=== PATIENT | female | born 1935 | race Caucasian/White ===

== ENCOUNTER → 2017-04-28 | Outpatient (CLI) | payer OTHER ==
[~2017-04-28] MED LIST: AMOX500T PO; ASPI81CH6 CHEW; ATOR40TA PO; ATOR40TA16 PO; CALC1TAB87 PO; CALC625 PO; CALTTAB5 PO; FIBE625T10 PO; HYDR-3288 PO; LEVO112T2 PO; LORTA5 PO; NAPR220T95 PO; NAPR500 PO; TAB-TAB PO; VITA1000 PO; VITA10004 PO; VITA400C28 PO
== END ==
LOC: CPRE 09:45
PROVIDERS: ATTEND Orthopaedic Surgery Sports Medicine
DX: M17.12 Unilateral primary osteoarthritis, left knee (principal)

== ENCOUNTER 2017-05-08 06:50 | Inpatient (IN) | payer OTHER, MEDICARE ==
[~2017-05-08] VITALS: Ht 172.7 cm; Wt 72.0 kg
[~2017-05-08 06:50] MED LIST changes: -AMOX500T PO; -ASPI81CH6 CHEW; -ATOR40TA PO; -CALC625 PO; -CALTTAB5 PO; -HYDR-3288 PO; -LORTA5 PO; -NAPR220T95 PO; -TAB-TAB PO; -VITA400C28 PO
[2017-05-08] MEDS ORDERED: ASPI81CH6 CHEW (07:09)
[2017-05-08] MEDS ORDERED: HYDR-3288 PO (07:09)
[2017-05-08] MEDS ORDERED: diphenhydrAMINE HCL 50 MG/ML VIAL IV PUSH PRN (07:15)
[2017-05-08] MEDS ORDERED: ONDANSETRON HCL 4 MG/2 ML VIAL IVP PRN (07:15)
[2017-05-08] MEDS ORDERED: MORPHINE SULFATE 4 MG/ML INJ IV PUSH PRN (07:15)
[2017-05-08] MEDS ORDERED: BISACODYL 10 MG SUPP RECTAL PRN (07:15)
[2017-05-08] MEDS ORDERED: VANCOMYCIN 1 GM/200 ML INJ 200 ML IV ONE (07:41)
[2017-05-08] MEDS ORDERED: DEXAMETHASONE SOD PHOS 20 MG/5 ML VIAL ONE (07:43)
[2017-05-08] MEDS ORDERED: VANCOMYCIN 1000 MG/NS 250 ML (for <70 kg) IV SCH ×2 (07:45)
[2017-05-08] MEDS ORDERED: CHLORHEXIDINE GLUCONATE 4% SOLN 120 ML BTL TOPICAL SCH (07:45)
[2017-05-08] MEDS ORDERED: ceFAZolin 2 GM PREMIX 50 ML IV SCH (07:45)
[2017-05-08] MEDS ORDERED: POVIDONE IODINE 5% (ANTISEPSIS KIT) 4 APPLICATIONS EACH NARE PRN (07:45)
[2017-05-08] MEDS ORDERED: LACTATED RINGER'S 1000 ML IV PRN (07:45)
[2017-05-08] MEDS ORDERED: POVIDONE IODINE 7.5% SCRUB 118 ML BOTTLE TOPICAL SCH (07:45)
[2017-05-08] MEDS ORDERED: SODIUM CHLORID 0.9% 500 ML IV PRN (07:45)
[2017-05-08] MEDS ORDERED: CHLORHEXIDINE GLUCONATE 2 % 1 PACK (2 CLOTHS) TOPICAL PRN (07:45)
[2017-05-08] MEDS ORDERED: INSULIN HUMAN REGULAR 1,000 UNITS/10 ML VIAL SQ PRN (07:45)
[2017-05-08] MEDS ORDERED: METOPROLOL TARTRATE 25 MG TAB PO PRN (07:45)
[2017-05-08] MEDS ORDERED: TRANEXAMIC PERI-ARTICULAR 3,000 MG/NS 100 ML P-ARTICULR SCH ×2 (08:00)
[2017-05-08] MEDS ORDERED: SODIUM CHLORIDE 0.9% IV SCH (08:00)
[2017-05-08] MEDS ORDERED: TRANEXAMIC ACID IV SCH (08:00)
[2017-05-08] MEDS ORDERED: ROPIVACAINE PERI-ARTICULAR INJECTION. P-ARTICULR SCH ×5 (08:00)
[2017-05-08] MEDS ORDERED: FAT EMULSION 20% INJ 0 ML ONE (08:10)
[2017-05-08 08:27] VITALS: PULSE 64
[2017-05-08] MEDS ORDERED: FAMOTIDINE 20 MG/2 ML VIAL ONE ×2 (08:58→09:06)
[2017-05-08] MEDS ORDERED: MIDAZOLAM HCL 2 MG/2 ML VIAL ONE (08:58)
[2017-05-08] MEDS: LEVOTHYROXINE SODIUM 112 MCG TAB PO SCH (09:00)
[2017-05-08] MEDS: CALCIUM POLYCARBOPHIL 625 MG TAB PO SCH (09:00)
[2017-05-08] MEDS: CHOLECALCIFEROL (VIT D3) 1000 UNIT TAB PO SCH (09:00)
[2017-05-08] MEDS ORDERED: ACETAMINOPHEN 1000 MG/100 ML 100 ML IV ONE (09:06)
[2017-05-08] MEDS ORDERED: GENTAMICIN SULFATE 80 MG/2 ML VIAL ONE (09:14)
[2017-05-08] MEDS ORDERED: MIDAZOLAM HCL 2 MG/2 ML VIAL IV ONE (10:15)
[2017-05-08] MEDS ORDERED: FAMOTIDINE 20 MG/2 ML VIAL IV ONE (10:15)
[2017-05-08] MEDS ORDERED: fentaNYL CITRATE 250 MCG/5 ML AMP ONE (10:32)
[2017-05-08] MEDS ORDERED: Post-op Orders (for Pharmacy) XX ONE (11:39)
--- NOTE | 2017-05-08 11:50 | MP ---
cc: Campbell Cotter MD DATE OF OPERATION: PREOPERATIVE DIAGNOSIS: Left knee osteoarthritis. POSTOPERATIVE DIAGNOSIS: Left knee osteoarthritis. PROCEDURE: Left total knee arthroplasty. SURGEON: Dr. Campbell Cotter. NUCLEAR PHYSICS PROFESSOR: JERMAINE Shearer. ANESTHESIA: General with femoral nerve adductor canal block. ESTIMATED BLOOD LOSS: 200 mL TOURNIQUET TIME: 24 minutes, 250 mmHg. COMPLICATIONS: None. IMPLANTS USED: DePuy Attune size 6 posterior stabilized femoral component, size 5 rotating platform tibial baseplate, size 5 mm polyethylene tibial insert, size 35 patella. JUSTIFICATION: This patient is an 81-year-old female with history of severe end-stage osteoarthritis involving the left knee. She has severe disabling pain with standing, walking, ambulation, weightbearing activities and severe pain at rest. She has failed greater than 3 months of nonoperative conservative treatment including medication therapy, injections, ambulatory assistive aids, home exercise program, activity modification. The patient is not overweight. X-rays of the left knee reveal severe end-stage osteoarthritis with joint space narrowing, subchondral sclerosis, subchondral cyst, osteophyte formation and subluxation with deformity. The patient was counseled on risks, benefits and alternatives to a total knee arthroplasty. The risks were discussed, which include but not limited to anesthesia, bleeding, infection, damage to nerves and blood vessels, pain, stiffness, failure of components, blood clots, pulmonary embolism and even . Patient's pain is severe. She favored the benefits over risks and she wished to proceed with surgery. PROCEDURE IN DETAIL: Written consent was obtained. The patient was identified by name, taken to the operating room, placed supine on operating table. General anesthesia was administered as well as 2 g of IV Ancef, 1 g of IV vancomycin. A well-padded tourniquet was placed on the left thigh. The left lower extremity was prepped and draped using isopropyl alcohol, Hibiclens solution and ChloraPrep solution. After a timeout was performed, an Esmarch bandage was used to exsanguinate the left lower extremity and tourniquet inflated to 250 mmHg. A longitudinal incision was made over the anterior aspect of left knee. A medial parapatellar arthrotomy was performed. The patella was everted. The patellar resection guide was used to resect 7 mm of patella. The size 35 mm guide was placed. Three drill holes were placed and 35 mm trial fit well. Attention turned to the femur where intramedullary guide blake was placed, and distal femoral guide was set to remove 10 mm of distal femur, 5 degrees off the anatomic valgus axis alignment. An oscillating saw was used to perform the distal femoral cut. Attention was turned to the tibia. An extramedullary tibial guide was set to remove 6 mm off the lowest portion of medial tibial plateau. The tibial guide was pinned in place. The tibial cut was performed. A 5 mm spacer block showed full extension. Attention was turned back to the femur. AP sizer block measured size 6. The anterior reference 3-degree external rotation guide was used to pin a size [address] Anterior, posterior, chamfer cuts were performed. A size 6 PCL block was pinned in place and the PCL was box cut with an oscillating saw. The medial and lateral meniscus remnants were removed as well as bone and soft tissue debris from posterior portion of the knee. A size 5 tibia baseplate was pinned in place. The tibia was drilled and punched. Trial components were . Final components were cemented in place. With the current components, the leg could achieve full extension of 0 degrees, flexion to 140, no evidence of tibial liftoff. Varus/valgus balance appeared appropriate and symmetric and the patella was noted to track centrally. The knee was thoroughly irrigated with sterile saline pulse lavage antibiotic-impregnated solution. The arthrotomy incision was closed with #1 Vicryl suture, subcutaneous layer with 2-0 Vicryl suture. Skin was closed with Dermabond. Sterile dressing was applied. The patient tolerated procedure well with no intraoperative complications noted. Austyn Vegas, physician bricklayer's assistant certified, was present throughout the entire procedure to include patient positioning and the procedure itself. The medical necessity of a physician bricklayer's assistant was indicated in this case due to the complexity of the procedure. He assisted with manipulation of the leg and also retraction of muscle, tendon, bone, neurovascular structure. He assisted in preparation of bone and also implantation of the prosthetic replacement. MD MARIA ESTHER Wilhelm/MYRNA , 11:14 AM , 11:48 AM
[2017-05-08] MEDS ORDERED: LACTATED RINGER'S 1000 ML INJ 1,000 ML IV ONE (12:00)
[2017-05-08] MEDS ORDERED: ONDANSETRON HCL 4 MG/2 ML VIAL IV PUSH ONE (12:00)
[2017-05-08] MEDS ORDERED: NEOSTIGMINE 5 MG/5 ML SYRINGE IV PUSH ONE (12:00)
[2017-05-08] MEDS ORDERED: LIDOCAINE HCL 1% PF 5 ML SYRINGE OTHER ONE (12:00)
[2017-05-08] MEDS ORDERED: PROPOFOL 200 MG/20 ML AMP IV ONE (12:00)
[2017-05-08] MEDS ORDERED: GLYCOPYRROLATE 1 MG/5 ML SYRINGE IV PUSH ONE (12:00)
[2017-05-08] MEDS ORDERED: ePHEDrine/NS 25 MG/5 ML SYRINGE IV ONE (12:00)
[2017-05-08] MEDS ORDERED: ROCURONIUM INJ 50 MG/5 ML SYRINGE IV PUSH ONE (12:00)
--- NOTE | 2017-05-08 12:36 | RADRPT ---
EXAM DATE/TIME: 05/08/2017 11:50 [facility] COMPARISON: No previous studies available for comparison. INDICATIONS : Post op left knee MEDICAL HISTORY : None. SURGICAL HISTORY : left knee replaced ENCOUNTER: Initial ACUITY: 1 day PAIN SCORE: 0/10 LOCATION: Left knee FINDINGS: Status post left knee prosthesis. There is good position and alignment of the knee prosthesis and bon y structures. There are postsurgical changes. CONCLUSION: Good position and alignment on this postoperative study. Antolin Darden MD on May 08, 2017 at 12:34 Board Certified Radiologist. This report was verified electronically.
--- NOTE | 2017-05-08 13:16 | HHI.DCPOC ---
Discharge Care Plan Diagnosis: (1) Primary localized osteoarthrosis, lower leg Your Health Problems Are: Difficulty with ADL Goals to Promote Your Health * To prevent worsening of your condition and complications * To maintain your health at the optimal level Directions to Meet Your Goals Take your medications as prescribed Follow your dietary instruction Follow activity as directed Keep your appointments as scheduled Take your immunizations and boosters as scheduled If your symptoms worsen call your PCP, if no PCP go to Urgent Care Center or Emergency Room Smoking is Dangerous to Your Health. Avoid second hand smoke Call the 24-hour hour crisis hotline for domestic abuse at Campbell Vegas May 08, 2017 13:16
[2017-05-08] MEDS ORDERED: cloNIDine HCL 0.1 MG TAB PO PRN (15:30)
--- NOTE | 2017-05-08 15:36 | PD.CONS ---
HPI Service [facility] Consult Requested By Dr. Cotter Reason for Consult Medical management Primary Care Physician Yudith Mcgarry Do, MD Diagnoses: History of Present Illness The patient is an 81-year-old female with past medical history of osteoarthritis who is presenting to the hospital for elective left knee replacement. The patient says she had her right knee done in 2010. She decided to pursue her left knee replacement because she has been walking crooked. She says she has been compensating for her knee and has been having a lot of issues with ambulation. She says she has been doing physical therapy on her own at home. She has been taking Aleve for pain control. She does not ambulate with a cane or a walker. She is able to go up and down stairs. The patient tolerated the procedure well and is currently reporting no pain. She says that she would likely benefit from rehabilitation following hospitalization as she wakes up many times at night to go to the bathroom and does not want to fall. She worked with physical therapy following surgery. Review of Systems Except as stated in HPI: all other systems reviewed are Neg Past Family Social History Allergies: Coded Allergies: Sulfa (Sulfonamide Antibiotics) (Unverified Allergy, Mild, 10/04/16) Past Medical History Diverticulitis status post surgery Osteoarthritis Thyroid nodule status post thyroidectomy Hyperlipidemia Nose spurs status post surgery Cholecystectomy Hysterectomy Active Ordered Medications Current Medications Medications (Trade) Dose Ordered Sig/Alyssa Route Start Time Stop Time Status Last Admin (Fiber Con) 1,250 mg DAILY PO 05/08/17 09:00 (Vitamin D3) 1,000 units DAILY PO 05/08/17 09:00 (Synthroid) 112 mcg DAILY@0600 PO 05/08/17 09:00 Sodium Chloride 1,000 ml @ 100 mls/hr Q10H IV 05/08/17 07:06 Cefazolin Sodium 1000 mg/Sodium Chloride 100 ml @ 200 mls/hr Q6H IV 05/08/17 16:00 05/09/17 04:29 (Lovenox Inj) 30 mg Q24H SQ 05/08/17 23:30 (Morphine Inj) 3 mg Q3H PRN IV PUSH 05/08/17 07:15 ([place] 7.5-325 Mg) 1 tab Q4H PRN PO 05/08/17 07:15 ([place] 7.5-325 Mg) 2 tab Q4H PRN PO 05/08/17 07:15 (Theragran M Tab) 1 tab BID PO 05/09/17 21:00 07/08/17 20:59 (Zofran Inj) 4 mg Q6H PRN IVP 05/08/17 07:15 (Colace) 100 mg BID PO 05/09/17 21:00 (Ambien) 5 mg HS PRN PO 05/08/17 21:00 (Dulcolax Supp) 10 mg DAILY PRN RECTAL 05/08/17 07:15 (Benadryl Inj) 25 mg Q6H PRN IV PUSH 05/08/17 07:15 Lactated Ringer's 1,000 ml @ 30 mls/hr Q24H PRN IV 05/08/17 07:45 05/11/17 07:44 Sodium Chloride 500 ml @ 30 mls/hr [id number] PRN IV 05/08/17 07:45 05/11/17 07:44 (Lopressor) 25 mg BALANCE RECESSER PRN PO 05/08/17 07:45 05/11/17 07:44 (Betadine 5% Antisepsis Kit) 1 applic BALANCE RECESSER PRN EACH NARE 05/08/17 07:45 05/11/17 07:44 (Chlorhexidine 2% Cloth) 3 pack BALANCE RECESSER PRN TOPICAL 05/08/17 07:45 05/11/17 07:44 (NovoLIN R INJ) See Protocol Table ... BALANCE RECESSER PRN SQ 05/08/17 07:45 05/11/17 07:44 (Betadine 7.5% Scrub) 1 applic ONCE TOPICAL 05/08/17 07:45 05/11/17 07:44 (Hibiclens 4% Top Soln) 1 applic ONCE TOPICAL 05/08/17 07:45 05/11/17 07:44 Vancomycin HCl 1000 mg/Sodium Chloride 250 ml @ 250 mls/hr BALANCE RECESSER IV 05/08/17 07:45 05/11/17 07:44 05/08/17 09:42 Tranexamic Acid 1069.5 mg/Sodium Chloride 110.695 ml @ 200 mls/ hr ONCE IV 05/08/17 08:00 05/09/17 14:00 05/08/17 09:46 Ropivacaine 24.63 ml/Ketorolac Tromethamine 30 mg/Epinephrine HCl 0.5 mg/ Clonidine 80 mcg/ Sodium Chloride 100 ml @ 200 mls/hr ONCE P-ARTICULR 05/08/17 08:00 05/09/17 14:00 05/08/17 10:17 Tranexamic Acid 3000 mg/Sodium Chloride 130 ml @ 260 mls/hr ONCE P-ARTICULR 05/08/17 08:00 05/09/17 14:00 05/08/17 10:17 Family History Pituitary tumor Social History The patient does not smoke. She has social alcohol use. Physical Exam Vital Signs Vital Signs Date Time Temp Pulse Resp B/P (MAP) Pulse Ox O2 Delivery O2 Flow Rate FiO2 05/08/17 11:45 80 12 160/72 (101) 100 Nasal Cannula 4 05/08/17 11:40 96.7 96 12 168/74 (105) 100 Nasal Cannula 4 05/08/17 08:28 100 Nasal Cannula 2 05/08/17 08:27 64 05/08/17 07:15 98.0 75 16 131/78 (95) 94 Physical Exam GENERAL: This is a well-nourished, well-developed patient, in no apparent distress. SKIN: No rashes, ecchymoses or lesions. Cool and dry. Old incision on right knee. HEAD: Atraumatic. Normocephalic. No temporal or scalp tenderness. EYES: Pupils equal round and reactive. Extraocular motions intact. No scleral icterus. No injection or drainage. ENT: Nose without bleeding, purulent drainage or septal hematoma. Throat without erythema, tonsillar hypertrophy or exudate. Uvula midline. Airway patent. NECK: Trachea midline. No JVD or lymphadenopathy. Supple, nontender, no meningeal signs. CARDIOVASCULAR: Regular rate and rhythm without murmurs, gallops, or rubs. RESPIRATORY: Clear to auscultation. Breath sounds equal bilaterally. No wheezes , rales, or rhonchi. GASTROINTESTINAL: Abdomen soft, non-tender, nondistended. No hepato-splenomegaly , or palpable masses. No guarding. MUSCULOSKELETAL: Left knee currently bandaged. No edema in the right lower extremity. NEUROLOGICAL: Awake and alert. Cranial nerves II through XII intact. Motor and sensory grossly within normal limits. Five out of 5 muscle strength in all muscle groups. Normal speech. PSYCH: Mood and affect appropriate. Imaging Last Impressions Knee X-Ray 05/08/17 0706 Signed Impressions: Service Date/Time: Monday, May 08, 2017 11:50 - CONCLUSION: Good position and alignment on this postoperative study. Antolin Darden MD Assessment and Plan Assessment and Plan Severe osteoarthritis The patient is status post elective left knee replacement 05/08/17. She tolerated the procedure well. She has a history of right knee replacement 2010. - Pain control with a bowel regimen. - Anticoagulation, weightbearing and wound care per orthopedic surgery. - Follow CBC and transfuse as needed. - Incentive spirometry. - Physical therapy. Hypertension Appears to be a stress reaction. - Clonidine as needed. - Pain control. Hypothyroidism The patient stated she had thyroid nodules and is status post thyroidectomy. - Continue levothyroxine. Diverticulitis Status post major surgery in the past. - Careful with bowel regimen as patient is prone to diarrhea. PPx: Per surgery Discussed Condition With Patient, physical therapy Sinan Lancaster DO May 08, 2017 15:36
[2017-05-08 19:06] VITALS: BP 151/80; PULSE 78; RESP 17; TEMP 99.1; O2SAT 99
[2017-05-08] MEDS: ACETAMINOPHEN/HYDROcodone 325 MG/7.5 MG TAB PO PRN (19:56)
[2017-05-08 20:00] VITALS: BP 125/62; PULSE 68; RESP 18; TEMP 98.5; O2SAT 96
[2017-05-08] MEDS ORDERED: ZOLPIDEM TARTRATE 5 MG TAB PO PRN (21:00)
[2017-05-08] MEDS: ENOXAPARIN SODIUM 30 MG/0.3 ML SYRINGE SQ SCH (23:39)
[2017-05-09] VITALS: BP 114/48; PULSE 72; RESP 18; TEMP 98.2; O2SAT 97
[2017-05-09 04:00] VITALS: BP 115/55; PULSE 79; RESP 18; TEMP 98.8; O2SAT 97
[2017-05-09] MEDS: LEVOTHYROXINE SODIUM 112 MCG TAB PO SCH (05:19)
[2017-05-09] MEDS: ACETAMINOPHEN/HYDROcodone 325 MG/7.5 MG TAB PO PRN ×5 (05:21→22:53)
[2017-05-09 06:02] LABS: HEMATOCRIT 31.4 % (35.0-46.0); HEMOGLOBIN 10.6 GM/DL (11.6-15.3); MEAN CELL VOLUME 92.4 FL (80.0-100.0); MEAN CORPUSCULAR HEMOGLOBIN 31.3 PG (27.0-34.0); MEAN CORPUSCULAR HGB CONC 33.8 % (32.0-36.0); MEAN PLATELET VOLUME 8.3 FL (7.0-11.0); PLATELET COUNT 132 TH/MM3 (150-450); RED CELL DISTRIBUTION WIDTH 13.4 % (11.6-17.2); WHITE BLOOD COUNT 12.6 TH/MM3 (4.0-11.0)
[2017-05-09 06:06] LABS: BICARBONATE 22.1 MEQ/L (21.0-32.0); CALCIUM 8.2 MG/DL (8.5-10.1); CREATININE 0.97 MG/DL (0.50-1.00)
[2017-05-09 08:00] VITALS: BP 115/65; PULSE 63; RESP 16; TEMP 98.2; O2SAT 93
[2017-05-09] MEDS ORDERED: POTASSIUM CHLORIDE 10 MEQ CAP PO ONE (08:30)
--- NOTE | 2017-05-09 08:31 | PD.ORT.PN ---
Subjective Post Op Day #: 1 Subjective Remarks pain under control. Objective Vitals Vital Signs Date Time Temp Pulse Resp B/P (MAP) Pulse Ox O2 Delivery O2 Flow Rate FiO2 05/09/17 04:00 98.8 79 18 115/55 (75) 97 05/09/17 00:00 98.2 72 18 114/48 (70) 97 05/08/17 20:56 16 05/08/17 20:00 98.5 68 18 125/62 (83) 96 05/08/17 19:06 99.1 78 17 151/80 (103) 99 05/08/17 17:00 98.2 67 12 126/60 (82) 98 Room Air 05/08/17 16:00 82 12 130/53 (78) 99 Room Air 05/08/17 15:00 68 12 130/61 (84) 99 Nasal Cannula 2 05/08/17 14:00 73 12 149/61 (90) 100 Nasal Cannula 2 05/08/17 13:00 61 12 136/60 (85) 98 Nasal Cannula 2 05/08/17 12:30 60 12 143/65 (91) 97 Nasal Cannula 2 05/08/17 12:15 60 12 148/65 (92) 100 Nasal Cannula 2 05/08/17 12:00 98.1 60 12 159/66 (97) 100 Nasal Cannula 2 05/08/17 11:45 80 12 160/72 (101) 100 Nasal Cannula 4 05/08/17 11:40 96.7 96 12 168/74 (105) 100 Nasal Cannula 4 I/O 05/08/17 05/08/17 05/08/17 05/09/17 05/09/17 05/09/17 07:00 15:00 23:00 07:00 15:00 23:00 Intake Total 1100 ml 250 ml 100 ml Output Total 200 ml 400 ml 0 ml Balance 900 ml -150 ml 100 ml Intake Oral 250 ml IV Total 1100 ml 100 ml Output Urine Total 400 ml 0 ml Estimated Blood Loss 200 ml # Bowel Movements 0 Result Diagram: 05/09/1744405/09/17444 Objective Remarks in bed, nad dressing c/d/i neg homans nvi Assessment & Plan Ortho Post Op Day #: 1 Problem List: Assessment and Plan s/p L TKA wbat ok to maintain dressing unless saturated lovenox, d/c on asa81 d/c planning snf when authorized by insurance rx in chart f/up dr. traore 2 weeks Campbell Vegas May 09, 2017 08:30
[2017-05-09] MEDS: CHOLECALCIFEROL (VIT D3) 1000 UNIT TAB PO SCH (08:39)
[2017-05-09] MEDS: CALCIUM POLYCARBOPHIL 625 MG TAB PO SCH (09:21)
--- NOTE | 2017-05-09 10:45 | HHI.PR ---
Subjective Remarks Follow-up left knee surgery. She is doing well already out of bed to chair. Discussed with nursing Objective Vitals Vital Signs Date Time Temp Pulse Resp B/P (MAP) Pulse Ox O2 Delivery O2 Flow Rate FiO2 05/09/17 10:26 18 05/09/17 08:00 98.2 63 16 115/65 (82) 93 05/09/17 04:00 98.8 79 18 115/55 (75) 97 05/09/17 00:00 98.2 72 18 114/48 (70) 97 05/08/17 20:56 16 05/08/17 20:00 98.5 68 18 125/62 (83) 96 05/08/17 19:06 99.1 78 17 151/80 (103) 99 05/08/17 17:00 98.2 67 12 126/60 (82) 98 Room Air 05/08/17 16:00 82 12 130/53 (78) 99 Room Air 05/08/17 15:00 68 12 130/61 (84) 99 Nasal Cannula 2 05/08/17 14:00 73 12 149/61 (90) 100 Nasal Cannula 2 05/08/17 13:00 61 12 136/60 (85) 98 Nasal Cannula 2 05/08/17 12:30 60 12 143/65 (91) 97 Nasal Cannula 2 05/08/17 12:15 60 12 148/65 (92) 100 Nasal Cannula 2 05/08/17 12:00 98.1 60 12 159/66 (97) 100 Nasal Cannula 2 05/08/17 11:45 80 12 160/72 (101) 100 Nasal Cannula 4 05/08/17 11:40 96.7 96 12 168/74 (105) 100 Nasal Cannula 4 I/O 05/08/17 05/08/17 05/08/17 05/09/17 05/09/17 05/09/17 07:00 15:00 23:00 07:00 15:00 23:00 Intake Total 1100 ml 250 ml 100 ml Output Total 200 ml 400 ml 0 ml Balance 900 ml -150 ml 100 ml Intake Oral 250 ml IV Total 1100 ml 100 ml Output Urine Total 400 ml 0 ml Estimated Blood Loss 200 ml # Bowel Movements 0 Result Diagram: 05/09/175 05/09/17444 Imaging Last Impressions Knee X-Ray 05/08/17 0706 Signed Impressions: Service Date/Time: Monday, May 08, 2017 11:50 - CONCLUSION: Good position and alignment on this postoperative study. Antolin Darden MD Objective Remarks GENERAL: This is a well-nourished, well-developed patient, in no apparent distress. SKIN: No rashes, ecchymoses or lesions. Cool and dry. CARDIOVASCULAR: Regular rate and rhythm without murmurs, gallops, or rubs. RESPIRATORY: Clear to auscultation. Breath sounds equal bilaterally. No wheezes , rales, or rhonchi. GASTROINTESTINAL: Abdomen soft, non-tender, nondistended. No guarding. MUSCULOSKELETAL: Left knee currently bandaged. No edema in the right lower extremity. NEUROLOGICAL: Awake and alert. Cranial nerves II through XII intact. Motor and sensory grossly within normal limits. Five out of 5 muscle strength in all muscle groups. Normal speech. PSYCH: Mood and affect appropriate. A/P Assessment and Plan Severe osteoarthritis The patient is status post elective left knee replacement 05/08/17. She tolerated the procedure well. She has a history of right knee replacement 2010. - Pain control with Lortab continue bowel regimen. - Anticoagulation with Lovenox, weightbearing and wound care per orthopedic surgery. - Follow CBC and transfuse as needed. - Incentive spirometry. - Physical therapy. Hypertension Appears to be a stress reaction. - Clonidine as needed. - Pain control. Hypothyroidism The patient stated she had thyroid nodules and is status post thyroidectomy. - Continue levothyroxine. Diverticulitis Status post major surgery in the past. - Careful with bowel regimen as patient is prone to diarrhea. Hyperlipidemia. Stable continue statin Hyperglycemia. Obtain A1c Anemia secondary to acute blood loss. Hemodynamically stable. Monitor Troy Rodriguez MD May 09, 2017 10:45
[2017-05-09 12:00] VITALS: BP 149/62; PULSE 73; RESP 18; TEMP 97.3; O2SAT 94
[2017-05-09] MEDS: SODIUM CHLOR 0.9% 1000 ML INJ 1,000 ML IV SCH ×2 (13:06→22:55)
[2017-05-09 16:57] LABS: HEMOGLOBIN A1C 5.1 % (4.3-6.0)
[2017-05-09 20:21] VITALS: BP 134/63; PULSE 78; RESP 17; TEMP 99; O2SAT 94
[2017-05-09] MEDS: DOCUSATE SODIUM 100 MG CAP PO SCH (20:25)
[2017-05-09] MEDS: MULTIVITAMINS/MINERALS THERAPEUTIC TAB PO SCH (20:25)
[2017-05-09] MEDS: ENOXAPARIN SODIUM 30 MG/0.3 ML SYRINGE SQ SCH (23:33)
[2017-05-10 00:58] VITALS: BP 118/58; PULSE 72; RESP 18; TEMP 99.2; O2SAT 95
[2017-05-10] MEDS: LEVOTHYROXINE SODIUM 112 MCG TAB PO SCH (04:46)
[2017-05-10] MEDS: ACETAMINOPHEN/HYDROcodone 325 MG/7.5 MG TAB PO PRN ×3 (04:46→13:59)
[2017-05-10] MEDS: DOCUSATE SODIUM 100 MG CAP PO SCH (07:39)
[2017-05-10] MEDS: CALCIUM POLYCARBOPHIL 625 MG TAB PO SCH (07:40)
[2017-05-10] MEDS: MULTIVITAMINS/MINERALS THERAPEUTIC TAB PO SCH (07:40)
[2017-05-10] MEDS: CHOLECALCIFEROL (VIT D3) 1000 UNIT TAB PO SCH (07:41)
[2017-05-10] MEDS: SODIUM CHLOR 0.9% 1000 ML INJ 1,000 ML IV SCH (07:42)
[2017-05-10 08:00] VITALS: BP 134/91; PULSE 81; RESP 18; TEMP 97.7; O2SAT 93
--- NOTE | 2017-05-10 08:03 | PD.ORT.PN ---
Subjective Post Op Day #: 2 Subjective Remarks pain under control. doing well. Objective Vitals Vital Signs Date Time Temp Pulse Resp B/P (MAP) Pulse Ox O2 Delivery O2 Flow Rate FiO2 05/10/17 00:58 99.2 72 18 118/58 (78) 95 05/09/17 20:21 99.0 78 17 134/63 (86) 94 05/09/17 18:33 18 05/09/17 12:00 97.3 73 18 149/62 (91) 94 I/O 05/09/17 05/09/17 05/09/17 05/10/17 05/10/17 05/10/17 07:00 15:00 23:00 07:00 15:00 23:00 Intake Total 100 ml 480 ml 480 ml Output Total 0 ml Balance 100 ml 480 ml 480 ml Intake Oral 480 ml 480 ml IV Total 100 ml Output Urine Total 0 ml # Voids 2 1 # Bowel Movements 0 0 0 Result Diagram: 05/09/1744405/09/17444 Objective Remarks in bed, nad dressing c/d/i mild swelling of knee neg homans nvi Assessment & Plan Ortho Post Op Day #: 2 Problem List: Assessment and Plan s/p L TKA wbat ok to maintain dressing unless saturated lovenox, d/c on asa81 d/c planning snf when authorized by insurance rx in chart f/up dr. traore 2 weeks Campbell Vegas May 10, 2017 08:03
--- NOTE | 2017-05-10 10:09 | HHI.PR ---
Subjective Remarks Follow-up orthopedic surgery. States she is doing okay awaiting discharge to senior care facility. No BM but passing gas denies abdominal pain. Discussed with nursing Objective Vitals Vital Signs Date Time Temp Pulse Resp B/P (MAP) Pulse Ox O2 Delivery O2 Flow Rate FiO2 05/10/17 00:58 99.2 72 18 118/58 (78) 95 05/09/17 20:21 99.0 78 17 134/63 (86) 94 05/09/17 18:33 18 05/09/17 12:00 97.3 73 18 149/62 (91) 94 I/O 05/09/17 05/09/17 05/09/17 05/10/17 05/10/17 05/10/17 07:00 15:00 23:00 07:00 15:00 23:00 Intake Total 100 ml 480 ml 480 ml Output Total 0 ml Balance 100 ml 480 ml 480 ml Intake Oral 480 ml 480 ml IV Total 100 ml Output Urine Total 0 ml # Voids 2 1 # Bowel Movements 0 0 0 Result Diagram: 05/09/17 0445 05/09/17 0445 Imaging Last Impressions Knee X-Ray 05/08/17 07 Signed Impressions: Service Date/Time: Monday, May 08, 2017 11:50 - CONCLUSION: Good position and alignment on this postoperative study. Antolin Darden MD Objective Remarks GENERAL: This is a well-nourished, well-developed patient, in no apparent distress. SKIN: No rashes, ecchymoses or lesions. Cool and dry. CARDIOVASCULAR: Regular rate and rhythm without murmurs, gallops, or rubs. RESPIRATORY: Clear to auscultation. Breath sounds equal bilaterally. No wheezes , rales, or rhonchi. GASTROINTESTINAL: Abdomen soft, non-tender, nondistended. No guarding. MUSCULOSKELETAL: Left knee currently bandaged. No edema in the right lower extremity. NEUROLOGICAL: Awake and alert. Cranial nerves II through XII intact. Motor and sensory grossly within normal limits. Five out of 5 muscle strength in all muscle groups. Normal speech. PSYCH: Mood and affect appropriate. A/P Assessment and Plan Severe osteoarthritis The patient is status post elective left knee replacement 05/08/17. She tolerated the procedure well. She has a history of right knee replacement 2010. - Pain control with Lortab continue bowel regimen. - Anticoagulation with Lovenox, weightbearing and wound care per orthopedic surgery. - Follow CBC and transfuse as needed. - Incentive spirometry. - Physical therapy. Hypertension Appears to be a stress reaction. - Clonidine as needed. - Pain control. Hypothyroidism The patient stated she had thyroid nodules and is status post thyroidectomy. - Continue levothyroxine. Diverticulitis Status post major surgery in the past. - Careful with bowel regimen as patient is prone to diarrhea. Hyperlipidemia. Stable continue statin Hyperglycemia. A1c 5.1 Hypokalemia. Replace with 60 M EQ p.o. 1. Check magnesium and replete accordingly. Anemia secondary to acute blood loss. Hemodynamically stable. Monitor Discharge Planning Stable for discharge follow-up BMP and magnesium in the morning Troy Rodriguez MD May 10, 2017 10:09
[2017-05-10] MEDS ORDERED: MAGNESIUM HYDROXIDE SUSP 30 ML CUP PO ONE (10:30)
[2017-05-10] MEDS ORDERED: LACTULOSE SYRUP 20 GM/30 ML CUP PO ONE (10:30)
[2017-05-10 12:00] VITALS: BP 149/70; PULSE 79; RESP 18; TEMP 98.2; O2SAT 93
[2017-05-10 13:21] LABS: HEMATOCRIT 32.8 % (35.0-46.0); HEMOGLOBIN 11.1 GM/DL (11.6-15.3); MEAN CELL VOLUME 93.8 FL (80.0-100.0); MEAN CORPUSCULAR HEMOGLOBIN 31.6 PG (27.0-34.0); MEAN CORPUSCULAR HGB CONC 33.7 % (32.0-36.0); MEAN PLATELET VOLUME 8.2 FL (7.0-11.0); PLATELET COUNT 137 TH/MM3 (150-450); RED CELL DISTRIBUTION WIDTH 13.5 % (11.6-17.2); WHITE BLOOD COUNT 11.3 TH/MM3 (4.0-11.0)
[2017-05-10 13:49] LABS: BICARBONATE 24.9 MEQ/L (21.0-32.0); CALCIUM 8.4 MG/DL (8.5-10.1); CREATININE 0.91 MG/DL (0.50-1.00)
[2017-05-10] MEDS ORDERED: POTASSIUM CHLORIDE 10 MEQ CONTROLLED RELEASE TAB PO ONE (14:00)
[2017-05-10 16:00] VITALS: BP 137/73; PULSE 82; RESP 18; TEMP 98.1; O2SAT 95
== END 2017-05-10 21:39 | DRG 470 ==
LOC: HSDC 06:50 → HSDI 07:08 → N06B 17:24
PROVIDERS: ADMIT Orthopaedic Surgery Sports Medicine; ATTEND Orthopaedic Surgery Sports Medicine
PROC: 3E0T3BZ Introduction of Anesthetic Agent into Peripheral Nerves and Plexi, Percutaneous Approach (ICD-10-PCS; 2017-05-08)
PROC: 0SRD0J9 Replacement of Left Knee Joint with Synthetic Substitute, Cemented, Open Approach (ICD-10-PCS; principal; 2017-05-08 09:28)
DX: M17.12 Unilateral primary osteoarthritis, left knee (principal); D62 Acute posthemorrhagic anemia; M25.762 Osteophyte, left knee; M85.662 Other cyst of bone, left lower leg; R73.9 Hyperglycemia, unspecified; E87.6 Hypokalemia; E89.0 Postprocedural hypothyroidism; E78.5 Hyperlipidemia, unspecified; R03.0 Elevated blood-pressure reading, without diagnosis of hypertension; Z87.891 Personal history of nicotine dependence; Z88.2 Allergy status to sulfonamides; Z88.5 Allergy status to narcotic agent
CPT/HCPCS: 73560; 80048; 83036; 83735; 85027; 86850; 86900; 86901; 94150; C1776; J0131; J0690; J0735; J1100; J1580; J1650; J1885; J2250; J2405; J2710; J2795; J3010; J3370; J7050; J7120; L1830

== ENCOUNTER 2017-12-11 07:14 | Inpatient (IN) ==
[2017-12-11] MEDS ORDERED: Chlorhexidine Gluconate 2% 1 Pack (2 Cloths) TOPICAL SCH (08:15)
[2017-12-11] MEDS ORDERED: Metoprolol Tartrate 25 MG Tablet PO SCH (08:15)
[2017-12-11] MEDS ORDERED: Chlorhexidine 4% Topical 120 APPLIC/120 ML Bottle TOPICAL SCH (08:30)
[2017-12-11] MEDS ORDERED: Post-op Orders (for Pharmacy) OTHER STA (08:54)
[2017-12-11] MEDS ORDERED: HYDROmorphone PF Inj 1 MG/ML Ampul IV.PUSH PRN (08:54)
[2017-12-11] MEDS ORDERED: ceFAZolin 2 GM Premix Inj 2 GM/50 ML PIGGYBACK IV.SIG SCH (09:00)
[2017-12-11] MEDS ORDERED: Vancomycin Inj 1,000 MG in Sodium Chlor 0.9% Inj 250 ML IV.SIG SCH (09:00)
[2017-12-11] MEDS ORDERED: Dexamethasone Inj 20 MG/5 ML Vial IV.PUSH ONE (09:00)
[2017-12-11] MEDS ORDERED: Sodium Chlor 0.9% Inj 500 ML IV.SIG SCH (09:00)
[2017-12-11] MEDS ORDERED: SODIUM CHLOR 0.9% IV.SIG SCH (09:00)
[2017-12-11] MEDS ORDERED: Sodium Chlor 0.9% Inj 40 ML, Bupivacaine Liposo PF 1.3% Inj 20 ML P-ARTICULR SCH ×2 (09:00)
[2017-12-11] MEDS ORDERED: TRANEXAMIC ACID IV.SIG SCH (09:00)
[2017-12-11] MEDS ORDERED: fentaNYL Citrate Inj 100 MCG/2 ML Ampul ONE (09:24)
[2017-12-11] MEDS ORDERED: fentaNYL Citrate Inj 250 MCG/5 ML Ampul ONE (09:24)
[2017-12-11] MEDS ORDERED: Famotidine PF Inj 20 MG/2 ML Vial ONE (09:25)
[2017-12-11] MEDS ORDERED: Tranexamic Acid Inj 3,000 MG in Sodium Chlor 0.9% Inj 100 ML P-ARTICULR SCH (09:30)
[2017-12-11] MEDS ORDERED: Lidocaine PF 1% Inj 5 ML Syringe OTHER ONE (09:48)
[2017-12-11] MEDS ORDERED: Levothyroxine 112 MCG Tablet PO SCH (10:00)
[2017-12-11] MEDS ORDERED: dilTIAZem CD 120 MG Capsule PO SCH (10:00)
[2017-12-11] MEDS ORDERED: Sugammadex Inj 200 MG/2 ML Vial IV.PUSH ONE (11:32)
--- NOTE | 2017-12-11 11:44 | XR ---
EXAM DATE: 12/11/2017 12:00 AM EDT AGE/SEX: 82 years / Female INDICATIONS: Left total hip replacement. CLINICAL DATA: This is the patient's initial encounter. Patient reports that signs and symptoms have been present for 1 day and indicates a pain score of Nonresponsive. MEDICAL/SURGICAL HISTORY: Non-responsive. Non-responsive. COMPARISON: No prior exams available for comparison. FINDINGS: 3 fluoroscopic images demonstrate a left hip arthroplasty in place. Arthroplasty components are in gr ossly anatomic alignment. No significant acute bony fracture. CONCLUSION: 1. Left hip arthroplasty, as above. Electronically signed by: Negro Navarrete MD 12/11/2017 11:42 AM EDT
[2017-12-11] MEDS ORDERED: Tranexamic Acid Inj 1,000 MG in Sodium Chlor 0.9% Inj 100 ML IV.SIG SCH (12:00)
[2017-12-11] MEDS ORDERED: *morphine SULFATE 10 MG/ML PERIprocedure ONLY ONE (12:03)
[2017-12-11] MEDS: Multivitamin/Minerals Therapeutic Tablet PO SCH ×2 (12:35→21:34)
[2017-12-11] MEDS: Senna/Docusate Sodium 8.6/50 MG Tablet PO SCH ×2 (12:35→21:34)
--- NOTE | 2017-12-11 13:01 | XR ---
EXAM DATE: 12/11/2017 8:53 AM EDT AGE/SEX: 82 years / Female INDICATIONS: Post operative left hip. CLINICAL DATA: This is the patient's initial encounter. Patient reports that signs and symptoms have been present for 1 day and indicates a pain score of 3/10. MEDICAL/SURGICAL HISTORY: None. None. COMPARISON: No prior exams available for comparison. FINDINGS: Status post placement of a left hip prosthesis. There is good position and alignment of the prosthesi s with the bony structures. The bony structures are grossly intact. CONCLUSION: Good position and alignment on this postoperative study. Electronically signed by: Antolin Darden MD 12/11/2017 12:59 PM EDT
--- NOTE | 2017-12-11 13:08 | MP ---
cc: Campbell Cotter MD DATE OF OPERATION: 12/11/2017 PREOPERATIVE DIAGNOSIS: Left hip osteoarthritis. POSTOPERATIVE DIAGNOSIS: Left hip osteoarthritis. PROCEDURE: Left total hip arthroplasty. SURGEON: Campbell Cotter MD PLATEMAN: JERMAINE Shearer. ANESTHESIA: General. ESTIMATED BLOOD LOSS: 300 mL COMPLICATIONS: None. IMPLANTS USED: DePuy Corail size 12 press-fit standard offset femoral stem, size 52 mm [place] Gription cup, size 36 mm poly cross-linked polyethylene neutral liner, size 36 mm cobalt chrome head, +1.5 neck. JUSTIFICATION: The patient is an 82-year-old female with history of severe end-stage osteoarthritis involving the left hip joint. She has severe disabling pain, standing, walking, ambulation, weight bearing and severe pain at rest. She has failed greater than 3 months of nonoperative conservative treatment to include medication therapy, injections, ambulatory assistive aides, home exercise program, activity modification. The patient underwent x-rays of the left hip that reveal severe osteoarthritis with [id number] joint space narrowing, subchondral sclerosis, subchondral cyst, osteophyte formation with subluxation. The patient was counseled as to the risks, benefits and alternatives to a total hip arthroplasty. The risks were discussed, which include, but are not limited to anesthesia, bleeding, infection, damage to nerves and blood vessels, pain, stiffness, fracture, dislocation, leg length discrepancy, blood clots, and even . The patient's pain is severe. He favored the benefits of the risks, she did wish to proceed with surgery. PROCEDURE IN DETAIL: Written consent was obtained. The patient was identified by name, taken to the operating room and placed supine on the table. General anesthesia was administered to the patient as well as 2 grams of IV Ancef and 1 gram of IV vancomycin. The left and right feet were placed in well-padded traction boots. The left hip and left lower extremity was prepped and draped using isopropyl alcohol, Hibiclens solution and ChloraPrep solution. After timeout was performed, a lateral incision near the anterolateral aspect of the left hip. The fascia are was incised and dissection carried over the tensor fascia polly beneath the rectus femoris to allow exposure of the anterior hip capsule. A capsulotomy incision was performed. Am oscillating saw was used to perform a femoral neck cut. The osteolytic femoral head and neck component was removed. A 10-blade scalpel was used to excise the labrum. Sequential reaming begun with a size 43 and was carried through to a size 52 mm. A [place] Gription cup, 52 mm was inserted into the acetabulum at approximately 45 degrees of abduction and 10 degrees of anteversion. A 35 mm screw was placed in the posterior superior quadrant for additional stabilization and fixation of the cup. A neutral highly cross-linked polyethylene liner was placed within the cup. This was impacted in place and tested for stability. Attention was turned to the femur where the leg was externally rotated, extended and adducted. A box cutting osteotome was used to gain entrance into the intramedullary canal of the femur, followed by a canal finder; sequential broaching up to size 12. Calcar planer was used to plane the calcar. Trial head and neck combinations were divided and the final component was implanted with a tourniquet. With the current components, the leg could be externally rotated 70 degrees and extended all the way down to the ground without evidence of anterior instability or impingement. Fluoroscopic imaging showed appropriate implantation of components. Surgical wound was thoroughly irrigated with sterile saline pulse with antibiotic impregnated solution. The fascial layer was closed with #1 Vicryl suture, subcutaneous layer with 2-0 Vicryl suture. Skin was closed with Dermabond. Sterile dressing was applied. The patient tolerated the procedure with no intraoperative complications noted. Austyn Vegas, Physician Cheese Tester-Certified was present during the entire procedure to include patient positioning and the procedure itself. The medical necessity of a physician tutoring assistant was indicated in this case due to the complexity of the procedure. He assisted with appropriate manipulation of the leg and retraction of muscle, tendon, bone, neurovascular structures. He assisted with preparation of bone and also implantation of the prosthetic replacement. MD MARIA ESTHER Wilhelm/kevin , 11:42 AM , 11:50 AM
--- NOTE | 2017-12-11 16:31 | ECG ---
Date Performed: 12/11/2017 Time Performed: 09:01:32 PTAGE: 82 years EKG: Sinus rhythm WITH SINUS ARRHYTHMIA Since the previous tracing, no significant change noted NORMAL ECG PREVIOUS TRACING : 07/15/2015 06.24 DOCTOR: Radha Huertas Interpretating Date/Time 12/11/2017 16:29:03
[2017-12-11] MEDS: ceFAZolin 2 GM Premix Inj 2 GM/50 ML PIGGYBACK IV.SIG SCH ×2 (16:43→21:33)
--- NOTE | 2017-12-11 18:38 | P.CONIM ---
History of Present Illness Service: [facility] Consult date: 12/11/17 Requesting Physician: Parvez Loomis Reason for Consult: MEDICAL MANAGEMENT Primary Care Provider: Do Yudith Mcgarry Chief Complaint: SP LEFT HIP ARTHROPLASTY History of Present Illness: Patient is an 82-year-old female who underwent a left total hip arthroplasty today due to severe osteoarthritis and degeneration of the left hip. We have been asked to consult regarding help with medical management. Past medical history is significant for burning mouth syndrome, colitis, history of a hysterectomy, hypothyroidism, history of bilateral total knee implants, history of bladder suspension, history of cholecystectomy, history of colon resection, history of thyroidectomy, history of tubal ligation, and history of total bilateral knee replacements Family history is positive for probable hypertension and arthritis Review of Systems All other systems reviewed negative except as stated in [facility] - History History Provided By: Patient - Medical History Medical History: Medical History (Last Updated 12/11/17 @ 18:38 by Parvez Loomis DO) Hypertension Burning mouth syndrome Colitis History of hysterectomy Hypothyroid Presence of orthopedic joint implant Wears dentures - Surgical History Surgical History: Surgical History (Last Reviewed 12/11/17 @ 18:34 by Parvez Loomis DO) History of bladder suspension procedure History of cholecystectomy History of colon resection History of thyroidectomy History of total bilateral knee replacement (TKR) Hx of tubal ligation - Family History Family History: Family History (Last Updated 12/11/17 @ 18:34 by Parvez Loomis DO) Other Family history of hypertension Osteoarthritis - Tobacco History Second Hand Smoke Exposure: No Tobacco Use In Past 30 Days: No Smoking Status: Former smoker Tobacco Type: Cigarettes - Alcohol History How Often Do You Have a Drink Containing Alcohol: 4 or more times a week - Substance Use History Substance History: No History of Abuse - Travel History Recent Travel in the [place] Within the Last 8 Weeks: No Recent Travel Out of the Country Within the Last 8 Weeks: No - Immunization History Tetanus Immunization: Unsure Hx Influenza Vaccine This Season: Yes Medications and Allergies Active Medications: Active Medications Hydrocodone Bitart/Acetaminophen ([employer] 7.5/325) 1 tab PO Q4H PRN PRN Reason: PAIN LESS THAN 5 ON SCALE Last Admin: 12/11/17 18:02 Dose: 1 tab Hydrocodone Bitart/Acetaminophen ([employer] 7.5/325) 2 tab PO Q6H PRN PRN Reason: PAIN SCALE 5 TO 10 Al Hydroxide/Mg Hydroxide (Milk Of Corry Liq) 30 ml PO BID PRN PRN Reason: Mild Constipation Aspirin (Aspirin Chew) 81 mg PO BID [facility] Last Admin: 12/11/17 12:34 Dose: Not Given Atorvastatin Calcium (Lipitor) 40 mg PO DIRECTED [facility] Chlorhexidine Gluconate (Chlorhexidine 2% Cloth) 3 pack TOPICAL GRAIN WAFER MACHINE OPERATOR [facility] Stop: 12/14/17 08:14 Chlorhexidine Gluconate (Hibiclens 4% Topical) 1 applicatio TOPICAL ONCE [facility] Stop: 12/15/17 08:29 Diltiazem HCl (Cardizem Cd 24hr) 120 mg PO DAILY [facility] Diphenhydramine HCl (Benadryl) 25 mg PO Q6H PRN PRN Reason: ITCHING Hydromorphone HCl (Dilaudid Pf Inj) 1 mg IV.PUSH Q3H PRN PRN Reason: BREAKTHROUGH PAIN Lactated Ringer's (Lr 1000 Ml Inj) 1,000 mls @ 30 mls/hr IV.SIG .Q24H [facility] Stop: 12/14/17 08:14 Last Infusion: 12/11/17 10:54 Dose: Infused Cefazolin Sodium/Dextrose (Ancef 2 Gm Premix Inj) 2 gm in 50 mls @ 100 mls/hr IV.SIG GRAIN WAFER MACHINE OPERATOR [facility] Stop: 12/15/17 08:59 Last Infusion: 12/11/17 10:54 Dose: Infused Tranexamic Acid 1,015 mg/ (Sodium Chloride) 110.15 mls @ 200 mls/hr IV.SIG ONCE [facility] Stop: 12/12/17 15:00 Last Infusion: 12/11/17 10:54 Dose: Infused Vancomycin HCl 1,000 mg/ (Sodium Chloride) 250 mls @ 250 mls/hr IV.SIG GRAIN WAFER MACHINE OPERATOR [facility] Stop: 12/14/17 08:21 Last Infusion: 12/11/17 10:54 Dose: Infused Cefazolin Sodium/Dextrose (Ancef 2 Gm Premix Inj) 2 gm in 50 mls @ 100 mls/hr IV.SIG Q6H [facility] Stop: 12/12/17 04:29 Last Infusion: 12/11/17 17:13 Dose: Infused Lactated Ringer's (Lr 1000 Ml Inj) 1,000 mls @ 80 mls/hr IV.CONT .[id number] [facility] Last Admin: 12/11/17 12:15 Dose: 80 mls/hr Tranexamic Acid 1,000 mg/ (Sodium Chloride) 110 mls @ 200 mls/hr IV.SIG ONCE [facility] Stop: 12/12/17 18:00 Lactulose (Lactulose Liq) 30 ml PO DAILY PRN PRN Reason: SEVERE CONSITIPATION Levothyroxine Sodium (Synthroid) 112 mcg PO DAILY@0600 [facility] Metoprolol Tartrate (Lopressor) 25 mg PO GRAIN WAFER MACHINE OPERATOR [facility] Stop: 12/14/17 08:14 Miscellaneous Information ([facility]) 1 each OTHER UNSCH PRN PRN Reason: SEE LABEL COMMENTS Stop: 12/12/17 11:55 Multivitamins/Minerals (Theragran-M) 1 tab PO BID [facility] Stop: 02/09/18 08:59 Last Admin: 12/11/17 12:35 Dose: Not Given Ondansetron HCl (Zofran Inj) 4 mg IV.PUSH Q6H PRN PRN Reason: NAUSEA OR VOMITING Last Admin: 12/11/17 18:23 Dose: 4 mg Povidone Iodine (Betadine 5% Antisepsis Kit) 1 applicatio EACH NARE GRAIN WAFER MACHINE OPERATOR [facility] Stop: 12/14/17 08:14 Povidone Iodine (Betadine 7.5% Scrub) 1 applicatio TOPICAL ONCE [facility] Stop: 12/15/17 08:59 Senna/Docusate Sodium (Alexandra-Colace) 1 tab PO BID [facility] Last Admin: 12/11/17 12:35 Dose: Not Given Sennosides (Senokot) 17.2 mg PO BID PRN PRN Reason: Moderate Constipation Sodium Chloride (Ns Flush) 2 ml IV.FLUSH BID [facility] Last Admin: 12/11/17 12:34 Dose: 2 ml Sodium Chloride (Ns Flush) 2 ml IV.FLUSH PRN PRN PRN Reason: FLUSH AFTER USING IV ACCESS Zolpidem Tartrate (Ambien) 5 mg PO HS PRN PRN Reason: INSOMNIA Allergies Allergy/AdvReac Type Severity Reaction Status Date / Time Sulfa (Sulfonamide Allergy Mild Rash Verified 12/11/17 08:35 Antibiotics) Home Medications Medication Instructions Recorded Confirmed Type aspirin [Aspirin Low Dose] 81 mg PO DAILY 11/23/17 12/11/17 History atorvastatin 40 mg PO DIRECTED 11/23/17 12/11/17 History calcium polycarbophil [Fiber 1,250 mg PO DAILY 11/23/17 12/11/17 History (calcium polycarbophil)] cholecalciferol (vitamin D3) 1,000 unit PO DAILY 11/23/17 12/11/17 History cyanocobalamin (vitamin B-12) 1,000 mcg PO DAILY 11/23/17 12/11/17 History diltiazem HCl 120 mg PO DAILY 11/23/17 12/11/17 History hydrocodone-acetaminophen [[employer]] 1 tab PO Q4-6H PRN 11/23/17 12/11/17 History levothyroxine 112 mcg PO DAILY 11/23/17 12/11/17 History Exam Vital signs: Vital Signs 12/11/17 08:42 12/11/17 12:00 12/11/17 12:15 Temperature 98.1 F 97.5 F L Pulse Rate 115 H 88 74 Respiratory Rate 16 16 16 Blood Pressure 144/90 H 108/77 130/63 Pulse Oximetry 97 99 97 12/11/17 12:30 12/11/17 12:45 12/11/17 13:34 Temperature 97.5 F L Pulse Rate 76 70 75 Respiratory Rate 16 16 18 Blood Pressure 137/67 140/66 131/62 Pulse Oximetry 100 100 95 12/11/17 14:42 12/11/17 16:00 Temperature 97.5 F L Pulse Rate 77 Respiratory Rate 18 18 Blood Pressure 111/55 L Pulse Oximetry 92 L Intake & Output 12/10/17 12/11/17 12/11/17 18:59 06:59 18:59 Intake Total 3180.15 / 3180.15 Output Total 300 / 300 Balance 2880.15 / 2880.15 Weight 67.7 kg Intake: IV 1460.15 / 1460.15 LR 1000 mL Inj 1,000 ML @ 30 1000 / 1000 mls/hr IV.SIG .Q24H [facility] Rx#: [id number] Cyklokapron Inj 1,015 MG In NS 110.15 / 110.15 Inj 100 ML @ 200 mls/hr IV.SIG ONCE [facility] Rx#:[id number] Vancomycin Inj 1,000 MG In NS 250 / 250 Inj 250 ML @ 250 mls/hr IV.SIG GRAIN WAFER MACHINE OPERATOR [facility] Rx#:[id number] Ancef 2 GM Premix Inj 2 gm In 100 / 100 50 ml @ 100 mls/hr IV.SIG Q6H [facility] Rx#:[id number] Oral 720 / 720 Anesthesia Amount 1000 / 1000 Output: Estimated Blood Loss 300 / 300 Other: # Voids 0 # Bowel Movements 0 Weight On Admission 67.7 kg Narrative: GENERAL: Awake alert and oriented x3 in moderate distress some nausea SKIN: Warm and dry. HEAD: Atraumatic. Normocephalic. EYES: Pupils equal and round. No scleral icterus. No injection or drainage. EOMI ENT: No nasal bleeding or discharge. Mucous membranes pink and moist. Tongue is midline NECK: Trachea midline. No JVD. Supple CARDIOVASCULAR: Regular rate and rhythm. S1-S2 no S3 or S4 RESPIRATORY: No accessory muscle use. Clear to auscultation. Breath sounds equal bilaterally. GASTROINTESTINAL: Abdomen soft, non-tender, nondistended. Hepatic and splenic margins not palpable. MUSCULOSKELETAL: Extremities without clubbing, cyanosis, or edema. No obvious deformities. Left hip is dressed NEUROLOGICAL: Awake and alert. No obvious cranial nerve deficits. Motor grossly within normal limits. Five out of 5 muscle strength in the arms and legs. Normal speech. PSYCHIATRIC: Appropriate mood and affect; insight and judgment normal. Results - Labs Labs: Laboratory Results - last 24 hr 12/11/17 08:35 Blood Type A Positive Blood Type Recheck Not needed Antibody Screen Negative - Imaging Impressions Hip X-Ray 12/11/17 00:00 CONCLUSION: 1. Left hip arthroplasty, as above. Hip X-Ray 12/11/17 08:53 CONCLUSION: Good position and alignment on this postoperative study. Assessment and Plan - Plan Status post left hip total arthroplasty by Dr. Cotter -Pain control per orthopedics -DVT prophylaxis per orthopedics Hypothyroidism continue on her thyroid medication -Check a TSH and a free T4 tomorrow History of osteoarthritis -Pain control as needed Hyperlipidemia continue on Lipitor Hypertension continue on diltiazem GI prophylaxis with Pepcid DVT prophylaxis per orthopedic surgery with aspirin 81 mg p.o. twice daily A.m. labs Continue PT and OT Patient states she wants to go to [place] rehab if she can be accepted Code Status: Full code Discussed Condition With: RN and patient Discharge Planning: Pending orthopedic clearance and stable labs
[2017-12-11] MEDS ORDERED: Zolpidem Tartrate 5 MG Tablet PO PRN (21:00)
[2017-12-11] MEDS: Famotidine 20 MG Tablet PO SCH (21:34)
[2017-12-12] MEDS: ceFAZolin 2 GM Premix Inj 2 GM/50 ML PIGGYBACK IV.SIG SCH (03:55)
[2017-12-12 06:57] LABS: Baso % (Auto) 0.1 % (0.0-2.0); Hematocrit 28.8 % (35.0-46.0); Hemoglobin 9.6 gm/dL (11.6-15.3); Lymph # (Auto) 1.1 th/mm3 (1.0-4.8); Lymph % (Auto) 9.6 % (9.0-44.0); Mean Corpuscular HGB Conc 33.5 % (32.0-36.0); Mean Corpuscular Hemoglobin 31.8 pg (27.0-34.0); Mean Corpuscular Volume 94.8 fL (80.0-100.0); Mean Platelet Volume 8.2 fL (7.0-11.0); Mono # (Auto) 0.9 th/mm3 (0.0-0.9); Mono % (Auto) 7.9 % (0.0-8.0); Neut # (Auto) 9.3 th/mm3 (1.8-7.7); Neut % (Auto) 82.4 % (16.0-70.0); Platelet Count 125 th/mm3 (150-450); Red Blood Count 3.04 mil/mm3 (4.00-5.30); Red Cell Distribution Width 13.5 % (11.6-17.2); White Blood Count 11.3 th/mm3 (4.0-11.0)
[2017-12-12 07:22] LABS: Albumin 2.8 g/dL (3.4-5.0); Anion Gap 10 meq/L (5-15); Aspartate Aminotransferase 24 U/L (15-37); Blood Urea Nitrogen 25 mg/dL (7-18); Carbon Dioxide 25.2 meq/L (21.0-32.0); Chloride 105 meq/L (98-107); Glomerular Filtration Rate 41 mL/min (>89); Glucose,Random 137 mg/dL (74-106); Magnesium 2.1 mg/dL (1.5-2.5); Potassium 4.2 meq/L (3.5-5.1); Sodium 140 meq/L (136-145)
[2017-12-12 07:23] LABS: Alanine Aminotransferase 22 U/L (10-53); Phosphorus 3.8 mg/dL (2.5-4.9)
[2017-12-12 07:32] LABS: Alkaline Phosphatase 64 U/L (45-117); Free T4 (Free Thyroxine) 1.27 ng/dL (0.76-1.46); Thyroid Stimulating Hormone 0.655 uIU/mL (0.358-3.740); Total Protein 5.9 g/dL (6.4-8.2)
--- NOTE | 2017-12-12 08:08 | P.PNOP ---
Subjective Interval history: doing well. Physical Exam Vital signs: Vital Signs 12/11/17 08:42 12/11/17 12:00 12/11/17 12:15 Temperature 98.1 F 97.5 F L Pulse Rate 115 H 88 74 Respiratory Rate 16 16 16 Blood Pressure 144/90 H 108/77 130/63 Pulse Oximetry 97 99 97 12/11/17 12:30 12/11/17 12:45 12/11/17 13:34 Temperature 97.5 F L Pulse Rate 76 70 75 Respiratory Rate 16 16 18 Blood Pressure 137/67 140/66 131/62 Pulse Oximetry 100 100 95 12/11/17 14:42 12/11/17 16:00 12/11/17 18:32 Temperature 97.5 F L Pulse Rate 77 Respiratory Rate 18 18 18 Blood Pressure 111/55 L Pulse Oximetry 92 L 12/11/17 20:00 12/12/17 00:00 12/12/17 04:00 Temperature 97.4 F L 98.2 F 98.9 F Pulse Rate 74 81 77 Respiratory Rate 16 16 16 Blood Pressure 122/56 L 102/51 L 108/63 Pulse Oximetry 98 97 97 Intake & Output 12/11/17 12/12/17 12/12/17 18:59 06:59 18:59 Intake Total 3180.15 / 3180.15 930 / 930 Output Total 300 / 300 Balance 2880.15 / 2880.15 930 / 930 Weight 67.7 kg 67.7 kg Intake: IV 1460.15 / 1460.15 50 / 50 LR 1000 mL Inj 1,000 ML @ 30 1000 / 1000 mls/hr IV.SIG .Q24H [facility] Rx#: [id number] Cyklokapron Inj 1,015 MG In NS 110.15 / 110.15 Inj 100 ML @ 200 mls/hr IV.SIG ONCE [facility] Rx#:[id number] Vancomycin Inj 1,000 MG In NS 250 / 250 Inj 250 ML @ 250 mls/hr IV.SIG HEAVY CLEANER [facility] Rx#:[id number] Ancef 2 GM Premix Inj 2 gm In 100 / 100 50 / 50 50 ml @ 100 mls/hr IV.SIG Q6H [facility] Rx#:[id number] Oral 720 / 720 880 / 880 Anesthesia Amount 1000 / 1000 Output: Estimated Blood Loss 300 / 300 Other: # Voids 0 2 Date of Last Bowel Movement 12/11/17 12/11/17 # Bowel Movements 0 Weight On Admission 67.7 kg Narrative: in bed, nad dressing c/d/i neg homalevon nvi Results - Labs CBC & Chem 7: 12/12/17 06:10 12/12/17 06:10 Laboratory Results - last 24 hr 12/11/17 12/12/17 12/12/17 08:35 06:10 06:10 WBC 11.3 H RBC 3.04 L Hgb 9.6 L Hct 28.8 L MCV 94.8 MCH 31.8 MCHC 33.5 RDW 13.5 Plt Count 125 L MPV 8.2 Neut % (Auto) 82.4 H Lymph % (Auto) 9.6 [place] % (Auto) 7.9 Eos % (Auto) 0.0 Baso % (Auto) 0.1 Neut # (Auto) 9.3 H Lymph # (Auto) 1.1 [place] # (Auto) 0.9 Eos # (Auto) 0.0 Baso # (Auto) 0.0 WBC Differential . Differential Comment Auto diff final Sodium 140 Potassium 4.2 Chloride 105 Carbon Dioxide 25.2 Anion Gap 10 BUN 25 H Creatinine 1.26 H Estimated GFR 41 L Random Glucose 137 H Calcium 8.0 L Phosphorus 3.8 Magnesium 2.1 Total Bilirubin 0.4 AST 24 ALT 22 Alkaline Phosphatase 64 Total Protein 5.9 L Albumin 2.8 L TSH 0.655 Free T4 1.27 Blood Type A Positive Blood Type Recheck Not needed Antibody Screen Negative - Imaging Impressions Hip X-Ray 12/11/17 00:00 CONCLUSION: 1. Left hip arthroplasty, as above. Hip X-Ray 12/11/17 08:53 CONCLUSION: Good position and alignment on this postoperative study. Assessment and Plan - Ortho Post Op Day # 1 - Assessment and Plan s/p L KIERRA anterior approach wbat ok to maintain dressing unless saturated asa 82 d/c planning to snf - cleared when authorized by insurance f/up dr. traore 2 weeks.
--- NOTE | 2017-12-12 09:29 | P.PN ---
Subjective Interval history: This is a pleasant 82 y/o Female status post Left total hip arthroplasty, she has burning mouth syndrome, Colitis hypothyroidism, history of bladder suspension, history of cholecystectomy, history of colon resection, history of thyroidectomy, history of tubal ligation, and history of total bilateral knee replacements 12/12: seen in her bedroom, stable no nausea, vomit or diarrhea, discussed with nurse Miss Rodarte awaiting for placement. Physical Exam Vital signs: Vital Signs 12/11/17 12:00 12/11/17 12:15 12/11/17 12:30 Temperature 97.5 F L Pulse Rate 88 74 76 Respiratory Rate 16 16 16 Blood Pressure 108/77 130/63 137/67 Pulse Oximetry 99 97 100 12/11/17 12:45 12/11/17 13:34 12/11/17 14:42 Temperature 97.5 F L Pulse Rate 70 75 Respiratory Rate 16 18 18 Blood Pressure 140/66 131/62 Pulse Oximetry 100 95 12/11/17 16:00 12/11/17 18:32 12/11/17 20:00 Temperature 97.5 F L 97.4 F L Pulse Rate 77 74 Respiratory Rate 18 18 16 Blood Pressure 111/55 L 122/56 L Pulse Oximetry 92 L 98 12/12/17 00:00 12/12/17 04:00 12/12/17 08:00 Temperature 98.2 F 98.9 F 98 F Pulse Rate 81 77 92 H Respiratory Rate 16 16 22 Blood Pressure 102/51 L 108/63 113/55 L Pulse Oximetry 97 97 94 L Intake & Output 12/11/17 12/12/17 12/12/17 18:59 06:59 18:59 Intake Total 3180.15 / 3180.15 930 / 930 Output Total 300 / 300 Balance 2880.15 / 2880.15 930 / 930 Weight 67.7 kg 67.7 kg Intake: IV 1460.15 / 1460.15 50 / 50 LR 1000 mL Inj 1,000 ML @ 30 1000 / 1000 mls/hr IV.SIG .Q24H [facility] Rx#: [id number] Cyklokapron Inj 1,015 MG In NS 110.15 / 110.15 Inj 100 ML @ 200 mls/hr IV.SIG ONCE [facility] Rx#:[id number] Vancomycin Inj 1,000 MG In NS 250 / 250 Inj 250 ML @ 250 mls/hr IV.SIG OPTICAL LAB TECHNICIAN [facility] Rx#:[id number] Ancef 2 GM Premix Inj 2 gm In 100 / 100 50 / 50 50 ml @ 100 mls/hr IV.SIG Q6H [facility] Rx#:[id number] Oral 720 / 720 880 / 880 Anesthesia Amount 1000 / 1000 Output: Estimated Blood Loss 300 / 300 Other: # Voids 0 2 Date of Last Bowel Movement 12/11/17 12/11/17 # Bowel Movements 0 Weight On Admission 67.7 kg Narrative: GENERAL: Awake alert and oriented x3 SKIN: Warm and dry. HEAD: Atraumatic. Normocephalic. EYES: Pupils equal and round. No scleral icterus. No injection or drainage. EOMI ENT: No nasal bleeding or discharge. Mucous membranes pink and moist. Tongue is midline NECK: Trachea midline. No JVD. Supple CARDIOVASCULAR: Regular rate and rhythm. S1-S2 no S3 or S4 RESPIRATORY: No accessory muscle use. Clear to auscultation. Breath sounds equal bilaterally. GASTROINTESTINAL: Abdomen soft, non-tender, nondistended. Hepatic and splenic margins not palpable. MUSCULOSKELETAL: Extremities without clubbing, cyanosis, or edema. No obvious deformities. Left hip is dressed NEUROLOGICAL: Awake and alert. No obvious cranial nerve deficits. PSYCHIATRIC: Appropriate mood and affect; insight and judgment normal. Results - Labs CBC & Chem 7: 12/12/17 06:10 12/12/17 06:10 Laboratory Results - last 24 hr 12/11/17 12/12/17 12/12/17 08:35 06:10 06:10 WBC 11.3 H RBC 3.04 L Hgb 9.6 L Hct 28.8 L MCV 94.8 MCH 31.8 MCHC 33.5 RDW 13.5 Plt Count 125 L MPV 8.2 Neut % (Auto) 82.4 H Lymph % (Auto) 9.6 [place] % (Auto) 7.9 Eos % (Auto) 0.0 Baso % (Auto) 0.1 Neut # (Auto) 9.3 H Lymph # (Auto) 1.1 [place] # (Auto) 0.9 Eos # (Auto) 0.0 Baso # (Auto) 0.0 WBC Differential . Differential Comment Auto diff final Sodium 140 Potassium 4.2 Chloride 105 Carbon Dioxide 25.2 Anion Gap 10 BUN 25 H Creatinine 1.26 H Estimated GFR 41 L Random Glucose 137 H Calcium 8.0 L Phosphorus 3.8 Magnesium 2.1 Total Bilirubin 0.4 AST 24 ALT 22 Alkaline Phosphatase 64 Total Protein 5.9 L Albumin 2.8 L TSH 0.655 Free T4 1.27 Blood Type A Positive Blood Type Recheck Not needed Antibody Screen Negative - Imaging Hip X-Ray 12/11/17 00:00 CONCLUSION: 1. Left hip arthroplasty, as above. Hip X-Ray 12/11/17 08:53 CONCLUSION: Good position and alignment on this postoperative study. - Procedures Status post left hip total arthroplasty by Dr. Cotter 12/11/17 Assessment and Plan - Plan Status post left hip total arthroplasty anterior approach by Doctor Cotter, Weight bearing as tolerated Okay to maintain dressing unless saturated, Aspirin 81 mg daily, Discharge planning to SNF once authorized by Insurance. Follow up with doctor Cotter in 2 weeks. -Pain control per orthopedics -DVT prophylaxis per orthopedics Hypothyroidism continue on her thyroid medication well controlled on her medication. History of osteoarthritis -Pain control as needed Hyperlipidemia continue on Lipitor Hypertension continue on diltiazem GI prophylaxis with Pepcid DVT prophylaxis per orthopedic surgery with aspirin 81 mg p.o. twice daily Continue PT and OT Code Status: Full code. Discussed Condition With: Patient and Nurse Miss Rdoarte. Discharge Planning: as per Attending physician.
[2017-12-12] MEDS: Multivitamin/Minerals Therapeutic Tablet PO SCH (10:09)
[2017-12-12] MEDS: Senna/Docusate Sodium 8.6/50 MG Tablet PO SCH (10:09)
[2017-12-12] MEDS: Famotidine 20 MG Tablet PO SCH (10:10)
[2017-12-12 13:06] VITALS: RESP 20; TEMP 97.9
[2017-12-12 16:02] VITALS: BP 117/54; PULSE 73; O2SAT 96
[2017-12-12 16:58] LABS: Hemoglobin A1c 4.9 % (4.3-6.0)
--- NOTE | 2017-12-13 11:31 | MD ---
cc: Campbell Cotter MD DATE OF DISCHARGE: 12/12/2017 ADMITTING DIAGNOSIS: Severe degenerative osteoarthritis, left hip. DISCHARGE DIAGNOSIS: Severe degenerative osteoarthritis, left hip. HISTORY OF PRESENT ILLNESS: Ms. Faith is an 82-year-old female who has been a longstanding patient of Dr. Campbell Cotter at the orthopedic clinic. Currently, she is being treated for severe and progressive left hip pain. The patient states the pain is inhibiting her activities of daily living and she has a severe aching sensation with weightbearing activities. She has no alleviating factors, although in the past, she has tried medications, assistive devices, physical therapy, and home exercise program without relief of symptoms. She does have x-ray evidence of severe degenerative changes of the left hip joint. While in the office, the patient was counseled on her diagnosis and treatment options. Risks, benefits, and indications were all discussed. The patient did elect to proceed with surgical intervention to include a left total hip arthroplasty. PROCEDURE: On 12/11/2017, left total hip arthroplasty, anterior approach. POSTOP: After surgery, the patient was admitted to [facility] where she received appropriate medical management, pain control, DVT prophylaxis, as well as physical therapy. DISCHARGE: Once being discharged from the hospital, the patient was cleared to go to a long-term facility as she lives alone. She is in stable condition. She may weight bear as tolerated. The patient has been instructed on wound care management. She has been provided prescriptions for pain control as well as DVT prophylaxis medication. She has also been provided with a followup appointment approximately 2 weeks from date of surgery. The patient did ask appropriate questions which have been answered. The patient has been discharged to a long-term facility. Dictated by JERMAINE Wilson Campbell Cotter MD [email or web address] , 10:10 PM , 10:15 PM
== END 2017-12-12 18:55 ==
LOC: HSDI 07:14 → N06 13:20
PROVIDERS: ADMIT Orthopaedic Surgery Sports Medicine; ATTEND Orthopaedic Surgery Sports Medicine